=== PATIENT | male | born 1965 | race African-American/Black ===

== ENCOUNTER 2020-11-15 10:00 | Emergency (ER) | payer MEDICAID, OTHER ==
[~2020-11-15] VITALS: Ht 188 cm; Wt 93.0 kg
[2020-11-15] MEDS ORDERED: cloNIDine HCL 0.1 MG TAB PO ONE (10:30)
[2020-11-15 11:26] VITALS: BP 168/105
[2020-11-15] MEDS ORDERED: KETOROLAC TROMETH 60MG/2ML VIAL IM ONE (12:00)
== END 2020-11-15 13:31 | disposition home or self-care (01) ==
LOC: ER 10:00
DX: M54.16 Radiculopathy, lumbar region (principal)
CPT/HCPCS: 72100; 96372; 99283; J1885